=== PATIENT | female | born 1975 | race Caucasian/White ===

== ENCOUNTER 2018-08-13 21:29 | Emergency (ER) | payer OTHER | END 2018-08-13 23:08 | disposition other institution (70) | LOC: ED 21:29 | DX: Z02.89 Encounter for other administrative examinations (principal) ==

== ENCOUNTER 2018-08-13 21:29 | Emergency (ER) | payer MEDICAID ==
[~2018-08-13] VITALS: Ht 149.9 cm; Wt 59.0 kg
[2018-08-13 21:35] VITALS: Ht 149.9 cm; Wt 59.0 kg
[2018-08-13 22:57] VITALS: BP 163/91
== END 2018-08-13 23:08 | disposition other institution (70) ==
LOC: ED 21:29
DX: I10 Essential (primary) hypertension (principal); Z13.89 Encounter for screening for other disorder; E11.9 Type 2 diabetes mellitus without complications